=== PATIENT | female | born 1975 | race Caucasian/White ===

== ENCOUNTER 2022-03-08 19:42 | Inpatient (IN) | payer MEDICAID ==
[~2022-03-08] VITALS: Ht 160 cm; Wt 79.5 kg
[2022-03-08 20:18] LABS: BASOPHILS # (AUTO) 0.1 X10'3 (0-0.2); BASOPHILS % (AUTO) 0.6 % (0-1); EOSINOPHILS # (AUTO) 0.1 X10'3 (0-0.9); EOSINOPHILS % (AUTO) 0.7 % (0-6); HEMATOCRIT 39.5 % (35.0-45.0); HEMOGLOBIN 13.7 g/dl (12.0-16.0); LYMPHOCYTES % (AUTO) 27.4 % (21-51); MEAN CORPUSCULAR HEMOGLOBIN 31.7 PG (27.0-31.0); MEAN CORPUSCULAR HGB CONC 34.6 g/dL (33.0-36.5); MEAN CORPUSCULAR VOLUME 91.9 FL (78-98); MEAN PLATELET VOLUME 8.1 FL (7.4-10.4); MONOCYTES # (AUTO) 0.9 X10'3 (0-0.9); MONOCYTES % (AUTO) 8.5 % (2-12); NEUTROPHILS # (AUTO) 6.8 X10'3 (1.8-7.7); NEUTROPHILS % (AUTO) 62.8 % (42-75); PLATELET COUNT 278 X10'3 (140-440); RED BLOOD COUNT 4.31 X10'6 (4.20-5.60); RED CELL DISTRIBUTION WIDTH 14.8 % (11.5-14.5); WHITE BLOOD COUNT 10.8 X10'3 (4.5-11.0)
[2022-03-08 20:27] LABS: APTT 35 SECONDS (22-32)
[2022-03-08 20:34] LABS: MAGNESIUM 1.8 MG/DL (1.5-2.4)
[2022-03-08] MEDS ORDERED: ondansetron/PF 4mg/2ml inj IV PRN (20:50)
[2022-03-08] MEDS ORDERED: magnesium 2GM in 50ml NS 50 ML IV PRN (20:50)
[2022-03-08] MEDS ORDERED: magnesium 4gm in 100ml NS 100 ML IV PRN (20:50)
[2022-03-08] MEDS ORDERED: nitroGLYCERIN 0.4mg SUBLingual tab SL PRN (20:50)
[2022-03-08] MEDS ORDERED: mag hydrox/Alum hydrox/simeth 30ml oral suspension PO PRN (20:50)
[2022-03-08] MEDS ORDERED: POTASSIUM BICARB 20meq eff tab 20 MEQ TABLET.EFF PO PRN ×2 (20:50)
[2022-03-08] MEDS ORDERED: acetaminophen 325mg tablet PO PRN (20:50)
[2022-03-08] MEDS ORDERED: potassium CL 10mEq/100ml bag 100 ML IV PRN (20:50)
[2022-03-08] MEDS ORDERED: PERFLUTREN PROTEIN-A MICROSPHR (Optison) 0.22 MG/ML 3ML VIAL IV PRN (20:50)
[2022-03-08] MEDS ORDERED: atorvastatin 20mg tablet PO ONE (21:20)
[2022-03-08] MEDS ORDERED: metoprolol tartrate 12.5mg (1/2 tablet) PO ONE (21:35)
[2022-03-08] MEDS: normal saline 1000ml 1,000 ML IV SCH (21:42)
[2022-03-08] MEDS ORDERED: HEPARIN SOD,PORK IN 0.45% NACL 0 ML IV ONE (22:07)
[2022-03-08] MEDS ORDERED: LIDOcaine 1%/PF 5ML 10 MG/ML VIAL ONE (22:07)
[2022-03-08] MEDS ORDERED: midazolam 1 mg/ML 2ml injection ONE ×2 (22:07→22:53)
[2022-03-08] MEDS ORDERED: fentaNYL/PF 50MCG/1 ML 2ML syringe ONE (22:08)
[2022-03-08] MEDS ORDERED: iohexol 350MG/ML 100ml bottle IV ONE (22:08)
[2022-03-08] MEDS ORDERED: tirofiban 5mg in NS 100mL 0 ML IV ONE (22:10)
[2022-03-08] MEDS ORDERED: diphenhydrAMINE 50 mg/ml inj ONE (22:30)
[2022-03-08] MEDS ORDERED: metoprolol tartrate 1mg/ml inj IV ONE (22:37)
[2022-03-08] MEDS ORDERED: clopidogrel 300mg tablet ONE (23:04)
[2022-03-09] VITALS (13 sets, daily range): BP systolic 91–151; BP diastolic 55–86
[2022-03-09] MEDS ORDERED: proCHLORperazine 10 MG/2 ml inj IV PRN (00:15)
[2022-03-09] MEDS ORDERED: OXAZEpam 15mg capsule PO PRN (00:15)
[2022-03-09] MEDS ORDERED: HYDROcodone/acetaminophen 10/325mg tab PO PRN ×2 (00:15)
[2022-03-09] MEDS ORDERED: magnesium hydroxide 30ml (MOM) UD suspension PO PRN (00:15)
[2022-03-09] MEDS ORDERED: morphine 10mg/ml inj. IV PRN (00:15)
[2022-03-09] MEDS ORDERED: acetaminophen 325mg tablet PO PRN ×2 (00:15)
[2022-03-09] MEDS ORDERED: morphine 4 MG/ML inj SYRINge IV PRN (00:15)
[2022-03-09] MEDS ORDERED: CLON0.1T2 PO (00:19)
[2022-03-09] MEDS ORDERED: LOSA50TA64 PO (00:19)
[2022-03-09] MEDS ORDERED: LEVO5TAB13 PO (00:19)
[2022-03-09] MEDS ORDERED: BUPR300T86 PO (00:19)
[2022-03-09] MEDS ORDERED: TRAM100T40 PO (00:19)
[2022-03-09] MEDS ORDERED: CARV6.253 PO (00:19)
[2022-03-09] MEDS ORDERED: HYDR25TA4 PO (00:19)
[2022-03-09] MEDS ORDERED: ACET-2778 (00:19)
[2022-03-09] MEDS ORDERED: heparin 10,000 units/1 ML INJ IV ONE (03:00)
[2022-03-09] MEDS ORDERED: heparin 10,000 units/1 ML INJ IV PRN (03:00)
[2022-03-09] MEDS ORDERED: HEPARIN SOD,PORK IN 0.45% NACL 250 ML IV SCH (03:00)
[2022-03-09 06:07] LABS: BASOPHILS # (AUTO) 0.1 X10'3 (0-0.2); BASOPHILS % (AUTO) 0.8 % (0-1); EOSINOPHILS # (AUTO) 0.1 X10'3 (0-0.9); EOSINOPHILS % (AUTO) 1.2 % (0-6); HEMATOCRIT 36.9 % (35.0-45.0); HEMOGLOBIN 13.2 g/dl (12.0-16.0); LYMPHOCYTES # (AUTO) 2.5 X10'3 (1.1-4.8); LYMPHOCYTES % (AUTO) 31.7 % (21-51); MEAN CORPUSCULAR HEMOGLOBIN 33.1 PG (27.0-31.0); MEAN CORPUSCULAR HGB CONC 35.8 g/dL (33.0-36.5); MEAN CORPUSCULAR VOLUME 92.4 FL (78-98); MEAN PLATELET VOLUME 8.4 FL (7.4-10.4); MONOCYTES # (AUTO) 0.6 X10'3 (0-0.9); MONOCYTES % (AUTO) 8.1 % (2-12); NEUTROPHILS # (AUTO) 4.5 X10'3 (1.8-7.7); NEUTROPHILS % (AUTO) 58.2 % (42-75); PLATELET COUNT 250 X10'3 (140-440); WHITE BLOOD COUNT 7.7 X10'3 (4.5-11.0)
--- NOTE | 2022-03-09 06:14 | NUR ---
Patient in room PCU 3025. I have received report from Mehreen DÍAZ and had the opportunity to ask questions and assume patient care.
[2022-03-09 06:28] LABS: ALANINE AMINOTRANSFERASE 17 U/L (12-78); ALBUMIN/GLOBULIN RATIO 0.9 (1.1-1.5); ALKALINE PHOSPHATASE 91 IU/L (46-116); ANION GAP 8 (8-16); ASPARTATE AMINO TRANSFERASE 30 U/L (10-37); BILIRUBIN,TOTAL 0.6 MG/DL (0.1-1.0); BLOOD UREA NITROGEN 10 MG/DL (7-18); CALCIUM 7.7 MG/DL (8.5-10.1); CHLORIDE 103 MMOL/L (99-107); CHOL/HDL RATIO 2.4 (0.00-4.99); CHOLESTEROL 224 MG/DL (0-200); CREATININE 0.77 MG/DL (0.40-0.90); GLUCOSE 98 MG/DL (70-104); HDL CHOLESTEROL 93 MG/DL (35-60); LDL CHOLESTEROL 101 MG/DL (50-100); MAGNESIUM 1.8 MG/DL (1.5-2.4); SODIUM 141 MMOL/L (135-145); TOTAL CARBON DIOXIDE 29.7 MMOL/L (24-32); TOTAL PROTEIN 6.3 G/DL (6.4-8.2); TRIGLYCERIDES 215 MG/DL (20-135); eGFR 80 ML/MIN
--- NOTE | 2022-03-09 07:18 | NUR ---
PAGER ID: [phone] MESSAGE: Ashley KERN [id number] Re: Ailyn Gaffney 3025B K+3.0 Replacing per protocol.
[2022-03-09] MEDS: docusate sod 100mg capsule PO SCH ×2 (07:59→19:44)
[2022-03-09] MEDS: loratadine 10mg tablet PO SCH (07:59)
[2022-03-09] MEDS: clopidogrel 75mg tablet PO SCH (07:59)
[2022-03-09] MEDS: cloNIDine 0.1 mg tablet PO SCH ×2 (08:00→19:45)
[2022-03-09] MEDS ORDERED: carVEDilol 12.5mg tablet PO SCH ×2 (08:00→20:00)
[2022-03-09] MEDS: aspirin 81mg tab.chew PO SCH (08:00)
[2022-03-09] MEDS ORDERED: docusate sod 100mg capsule PO SCH (08:00)
[2022-03-09] MEDS: K and/or MAG REPLACEMENT MC SCH ×2 (08:00→20:00)
[2022-03-09] MEDS: buPROPion SR 150mg tablet PO SCH ×2 (08:01→19:44)
[2022-03-09] MEDS: traMADol 50MG tablet PO SCH ×4 (08:01→21:58)
[2022-03-09] MEDS: normal saline 1000ml 1,000 ML IV SCH (08:04)
[2022-03-09] MEDS ORDERED: potassium Cl 20 mEq SR tablet PO PRN (11:25)
[2022-03-09] MEDS ORDERED: HYDR50TA4 PO (13:06)
[2022-03-09] MEDS: potassium Cl 20 mEq SR tablet PO PRN ×2 (15:52→22:01)
--- NOTE | 2022-03-09 18:43 | NUR ---
Problems reprioritized. Patient report given, questions answered & plan of care reviewed with Apolonia RN bedside report .
--- NOTE | 2022-03-09 19:26 | NUR ---
PT REFUSED INSULIN COVERAGE FOR DINNER. WILL SEE PATIENT BLOOD GLUCOSE STATUS AT BLOOD GLUCOSE CHECK. Addendum: 03/10/22 at 0635 by Apolonia Crow RN WRONG PATIENT
[2022-03-09] MEDS: carvedilol 6.25mg tablet PO SCH (19:45)
[2022-03-10 02:00] VITALS: BP 90/60
[2022-03-10 06:00] VITALS: BP 100/64
[2022-03-10 06:10] LABS: BASOPHILS # (AUTO) 0.1 X10'3 (0-0.2); BASOPHILS % (AUTO) 1.7 % (0-1); EOSINOPHILS # (AUTO) 0.2 X10'3 (0-0.9); EOSINOPHILS % (AUTO) 3.1 % (0-6); HEMATOCRIT 35.4 % (35.0-45.0); LYMPHOCYTES # (AUTO) 2.6 X10'3 (1.1-4.8); LYMPHOCYTES % (AUTO) 36.1 % (21-51); MEAN CORPUSCULAR VOLUME 94.1 FL (78-98); MEAN PLATELET VOLUME 8.6 FL (7.4-10.4); MONOCYTES # (AUTO) 0.5 X10'3 (0-0.9); MONOCYTES % (AUTO) 6.4 % (2-12); NEUTROPHILS # (AUTO) 3.8 X10'3 (1.8-7.7); NEUTROPHILS % (AUTO) 52.7 % (42-75); PLATELET COUNT 214 X10'3 (140-440); RED BLOOD COUNT 3.77 X10'6 (4.20-5.60); RED CELL DISTRIBUTION WIDTH 15.3 % (11.5-14.5); WHITE BLOOD COUNT 7.2 X10'3 (4.5-11.0)
--- NOTE | 2022-03-10 06:35 | NUR ---
Problems reprioritized. Patient report given, questions answered & plan of care reviewed with ARJUN BUCKNER.
[2022-03-10 06:41] LABS: ALANINE AMINOTRANSFERASE 16 U/L (12-78); ALBUMIN 2.6 G/DL (3.4-5.0); ALBUMIN/GLOBULIN RATIO 0.8 (1.1-1.5); ALKALINE PHOSPHATASE 80 IU/L (46-116); ANION GAP 6 (8-16); ASPARTATE AMINO TRANSFERASE 24 U/L (10-37); BILIRUBIN,TOTAL 0.3 MG/DL (0.1-1.0); BLOOD UREA NITROGEN 11 MG/DL (7-18); BUN/CREATININE RATIO 12.6 (6.6-38.0); CALCIUM 7.9 MG/DL (8.5-10.1); CHLORIDE 104 MMOL/L (99-107); CREATININE 0.87 MG/DL (0.40-0.90); GLUCOSE 96 MG/DL (70-104); MAGNESIUM 1.7 MG/DL (1.5-2.4); POTASSIUM 3.9 MMOL/L (3.5-5.1); SODIUM 140 MMOL/L (135-145); TOTAL CARBON DIOXIDE 30.5 MMOL/L (24-32); TOTAL PROTEIN 5.8 G/DL (6.4-8.2); eGFR 69 ML/MIN
[2022-03-10] MEDS: K and/or MAG REPLACEMENT MC SCH ×2 (08:00→20:00)
[2022-03-10] MEDS: losartan 50mg tablet PO SCH (08:00)
[2022-03-10] MEDS: cloNIDine 0.1 mg tablet PO SCH (08:00)
[2022-03-10] MEDS: clopidogrel 75mg tablet PO SCH (08:16)
[2022-03-10] MEDS: atorvastatin 20mg tablet PO SCH (08:16)
[2022-03-10] MEDS: aspirin 81mg tab.chew PO SCH (08:17)
[2022-03-10] MEDS: docusate sod 100mg capsule PO SCH ×2 (08:17→20:16)
[2022-03-10] MEDS: traMADol 50MG tablet PO SCH ×4 (08:17→20:17)
[2022-03-10] MEDS: buPROPion SR 150mg tablet PO SCH ×2 (08:17→20:17)
[2022-03-10] MEDS: loratadine 10mg tablet PO SCH (08:17)
--- NOTE | 2022-03-10 08:53 | NUR ---
Dr Montalvo aware of patient bp of 104/71 HR 75 hold Losartan and Clonodine, ok to give Coreg
[2022-03-10] MEDS: carvedilol 6.25mg tablet PO SCH ×2 (08:57→20:00)
[2022-03-10 11:00] VITALS: BP 102/72
[2022-03-10 15:15] VITALS: BP 114/73
--- NOTE | 2022-03-10 18:58 | NUR ---
Problems reprioritized. Patient report given, questions answered & plan of care reviewed with Stevenson RN at bedside.
[2022-03-10 22:00] VITALS: BP 134/91
[2022-03-11 02:00] VITALS: BP 110/60
[2022-03-11 06:00] VITALS: BP 124/81
[2022-03-11 07:01] LABS: BASOPHILS # (AUTO) 0.1 X10'3 (0-0.2); BASOPHILS % (AUTO) 0.9 % (0-1); EOSINOPHILS # (AUTO) 0.3 X10'3 (0-0.9); EOSINOPHILS % (AUTO) 3.8 % (0-6); HEMATOCRIT 34.7 % (35.0-45.0); HEMOGLOBIN 11.8 g/dl (12.0-16.0); LYMPHOCYTES # (AUTO) 2.7 X10'3 (1.1-4.8); LYMPHOCYTES % (AUTO) 34.5 % (21-51); MEAN CORPUSCULAR HEMOGLOBIN 31.8 PG (27.0-31.0); MEAN CORPUSCULAR VOLUME 93.6 FL (78-98); MEAN PLATELET VOLUME 8.8 FL (7.4-10.4); MONOCYTES # (AUTO) 0.7 X10'3 (0-0.9); MONOCYTES % (AUTO) 8.6 % (2-12); NEUTROPHILS % (AUTO) 52.2 % (42-75); PLATELET COUNT 203 X10'3 (140-440); RED BLOOD COUNT 3.71 X10'6 (4.20-5.60); RED CELL DISTRIBUTION WIDTH 14.7 % (11.5-14.5); WHITE BLOOD COUNT 7.7 X10'3 (4.5-11.0)
[2022-03-11 07:09] LABS: ALANINE AMINOTRANSFERASE 19 U/L (12-78); ALBUMIN 2.7 G/DL (3.4-5.0); ALBUMIN/GLOBULIN RATIO 0.8 (1.1-1.5); ALKALINE PHOSPHATASE 77 IU/L (46-116); ANION GAP 6 (8-16); ASPARTATE AMINO TRANSFERASE 22 U/L (10-37); BILIRUBIN,TOTAL 0.2 MG/DL (0.1-1.0); BLOOD UREA NITROGEN 11 MG/DL (7-18); BUN/CREATININE RATIO 15.7 (6.6-38.0); CALCIUM 7.8 MG/DL (8.5-10.1); CHLORIDE 104 MMOL/L (99-107); GLUCOSE 82 MG/DL (70-104); MAGNESIUM 1.7 MG/DL (1.5-2.4); POTASSIUM 3.9 MMOL/L (3.5-5.1); SODIUM 140 MMOL/L (135-145); TOTAL CARBON DIOXIDE 30.3 MMOL/L (24-32); TOTAL PROTEIN 5.9 G/DL (6.4-8.2); eGFR 89 ML/MIN
--- NOTE | 2022-03-11 07:48 | NUR ---
Patient in room PCU 3025. I have received report from Stevenson DÍAZ and had the opportunity to ask questions and assume patient care.
[2022-03-11] MEDS: carvedilol 6.25mg tablet PO SCH (10:17)
[2022-03-11] MEDS: aspirin 81mg tab.chew PO SCH (10:17)
[2022-03-11] MEDS: buPROPion SR 150mg tablet PO SCH (10:17)
[2022-03-11] MEDS: loratadine 10mg tablet PO SCH (10:18)
[2022-03-11] MEDS: clopidogrel 75mg tablet PO SCH (10:18)
[2022-03-11] MEDS: docusate sod 100mg capsule PO SCH (10:19)
[2022-03-11] MEDS: atorvastatin 20mg tablet PO SCH (10:19)
[2022-03-11] MEDS: traMADol 50MG tablet PO SCH (10:21)
[2022-03-11 10:22] VITALS: BP_SYST 149
[2022-03-11] MEDS: losartan 50mg tablet PO SCH (10:22)
[2022-03-11] MEDS ORDERED: ATOR20TA66 PO (10:25)
[2022-03-11] MEDS ORDERED: CLOP75TA34 PO (10:25)
[2022-03-11] MEDS ORDERED: LOSA50TA64 PO (10:25)
[2022-03-11] MEDS ORDERED: ASPI81TA53 PO (10:25)
--- NOTE | 2022-03-11 12:39 | NUR ---
Patient stable for discharge per Dr. Milian. All discharge instructions reviewed with patient and all questions answered. Patient verbalized understanding. New prescriptions e-scripted to [facility] in [place]. PIV discontinued, cannula intact. Tele discontinued. All belongings collected and sent with patient. Wheeled to lobby via nursing staff, and picked up by family.
== END 2022-03-11 12:11 | disposition home or self-care (01) | DRG 190 ==
LOC: ER 19:43 → ED HOLD 21:18 → EDBEDREQ 22:29 → PCU 3S 23:35
PROVIDERS: ADMIT Family Medicine; ATTEND Family Medicine
PROC: 4A023N7 Measurement of Cardiac Sampling and Pressure, Left Heart, Percutaneous Approach (ICD-10-PCS; principal; 2022-03-08)
PROC: B2111ZZ Fluoroscopy of Multiple Coronary Arteries using Low Osmolar Contrast (ICD-10-PCS; 2022-03-08)
PROC: B2151ZZ Fluoroscopy of Left Heart using Low Osmolar Contrast (ICD-10-PCS; 2022-03-08)
PROC: B41F1ZZ Fluoroscopy of Right Lower Extremity Arteries using Low Osmolar Contrast (ICD-10-PCS; 2022-03-08)
DX: I21.4 Non-ST elevation (NSTEMI) myocardial infarction (principal); I95.9 Hypotension, unspecified; I51.81 Takotsubo syndrome; E78.5 Hyperlipidemia, unspecified; E66.01 Morbid (severe) obesity due to excess calories; F32.9 Major depressive disorder, single episode, unspecified; F41.9 Anxiety disorder, unspecified; I10 Essential (primary) hypertension; K21.9 Gastro-esophageal reflux disease without esophagitis; M47.814 Spondylosis without myelopathy or radiculopathy, thoracic region; Z79.02 Long term (current) use of antithrombotics/antiplatelets; Z79.82 Long term (current) use of aspirin; Z79.899 Other long term (current) drug therapy; Z98.84 Bariatric surgery status; Z68.31 Body mass index [BMI] 31.0-31.9, adult
CPT/HCPCS: 36415; 71045; 80053; 80061; 83735; 83880; 84484; 85025; 85610; 85730; 87081; 93005; 93306; 93458; 99152; 99153; 99285; A4620; A6258; C1760; C1769; G0378; J1200; J1644; J2250; J2270; J3010; J3246; J3490; J7030; Q9967

== ENCOUNTER 2024-04-19 11:41 | Emergency (ER) | payer MEDICAID ==
[~2024-04-19] VITALS: Ht 165.1 cm; Wt 73.7 kg
[~2024-04-19 11:41] MED LIST: ASPI81TA53 PO; ATOR20TA66 PO; BUPR-564 PO; CARV6.253 PO; CLOP75TA34 PO; LEVO5TAB13 PO; LOSA50TA64 PO; TRAM100T40 PO
[2024-04-19 11:50] VITALS: BP 182/98; PULSE 79; RESP 18; TEMP 97.9; O2SAT 98
[2024-04-19] MEDS ORDERED: NALT50TA5 PO (12:20)
== END 2024-04-19 12:27 | disposition home or self-care (01) ==
LOC: ER 11:42
DX: F10.129 Alcohol abuse with intoxication, unspecified (principal); I10 Essential (primary) hypertension; Z79.82 Long term (current) use of aspirin; Z79.899 Other long term (current) drug therapy; Y90.9 Presence of alcohol in blood, level not specified
CPT/HCPCS: 99283; J7030